=== PATIENT | female | born 2000 | race Caucasian/White ===

== ENCOUNTER 2018-08-23 10:08 | Emergency (ER) | payer BC ==
--- NOTE | 2018-08-23 11:03 | ED ---
General Adult HPI - General Chief complaint: Anxiety Stated complaint: Mental Health Time Seen by Provider: 08/23/18 10:31 Source: patient, RN notes reviewed Mode of arrival: ambulatory Limitations: no limitations - History of Present Illness Initial comments: Patient's a 17-year-old female presenting to the emergency room today with her mother, the chief complaint of needing a evaluation for anxiety. Patient states that she's been dealing with increased anxiety. She states she's had this now for several years but has gotten worse this past year. She states she' s been working the next and feels that this does not help. States she's been unable to go to work because when she leaves the house and anxiety increases. She states she knows that she's just thinking about it too much. She states she is not on any medications. She was prescribed some Zoloft that she tried one pill but did not like how it made her feel. She did talk to a counselor advised her to come here to the emergency room to be evaluated. Patient denies any suicidal, homicidal thoughts or plans. Denies any other physical complaints. Patient denies any recent fever, chills, shortness of breath, chest pain, back pain, abdominal pain, nausea or vomiting, headaches or visual changes , or any other complaints. - Related Data Previous Rx's Medication Instructions Recorded ALPRAZolam [Xanax] 0.25 mg PO Q8HR PRN 3 Days #9 tab 08/23/18 Allergies Allergy/AdvReac Type Severity Reaction Status Date / Time No Known Allergies Allergy Verified 08/23/18 10:22 Review of Systems ROS Statement: Those systems with pertinent positive or pertinent negative responses have been documented in the HPI. ROS Other: All systems not noted in ROS Statement are negative. Past Medical History Additional Past Medical History / Comment(s): DANNY History of Any Multi-Drug Resistant Organisms: None Reported Past Surgical History: No Surgical Hx Reported Past Psychological History: ADD/ADHD, Anxiety Smoking Status: Never smoker Past Alcohol Use History: None Reported Past Drug Use History: None Reported General Exam - General Exam Comments Initial Comments: General: The patient is awake and alert, in no distress, and does not appear acutely ill. Neck: The neck is supple Cardiovascular: There is a regular rate and rhythm. No murmur, rub or gallop is appreciated. Respiratory: Lungs are clear to auscultation, respirations are non-labored, breath sounds are equal. No wheezes, stridor, rales, or rhonchi. Musculoskeletal: Normal ROM, no tenderness. Neurological: A&O x 3. CN II-XII intact, There are no obvious motor or sensory deficits. Coordination appears grossly intact. Speech is normal. Skin: Skin is warm and dry and no rashes or lesions are noted. Psychiatric: Cooperative, appropriate mood & affect, normal judgment. Limitations: no limitations Course Vital Signs 08/23/18 10:22 Temperature 98.5 F Pulse Rate 103 H Respiratory 18 Rate Blood Pressure 137/91 O2 Sat by Pulse 100 Oximetry Medical Decision Making - Medical Decision Making Patient examined here in the emergency room by mental health. They recommend the patient follow up outpatient. They do recommend trying patient on a short prescription of Xanax until she is able follow-up next week. Patient advised to return to emergency room if any symptoms increase worsen. - Lab Data Lab Results 08/23/18 08/23/18 Range/Units 11:07 11:07 Urine HCG, Qual Not Detected (Not Detectd) Urine Opiates Screen Not Detected (NotDetected) Ur Oxycodone Screen Not Detected (NotDetected) Urine Methadone Screen Not Detected (NotDetected) Ur Propoxyphene Screen Not Detected (NotDetected) Ur Barbiturates Screen Not Detected (NotDetected) U Tricyclic Antidepress Not Detected (NotDetected) Ur Phencyclidine Scrn Not Detected (NotDetected) Ur Amphetamines Screen Not Detected (NotDetected) U Methamphetamines Scrn Not Detected (NotDetected) U Benzodiazepines Scrn Not Detected (NotDetected) Urine Cocaine Screen Not Detected (NotDetected) U Marijuana (THC) Screen Detected H (NotDetected) Disposition Clinical Impression: Anxiety Disposition: HOME SELF-CARE Condition: Good Instructions: Generalized Anxiety Disorder (ED) Additional Instructions: Please follow-up with counselor as discussed. Please use medication if needed for your symptoms of anxiety. Please return to emergency room for any other concerns. Prescriptions: ALPRAZolam [Xanax] 0.25 mg PO Q8HR PRN 3 Days #9 tab PRN Reason: Anxiety Is patient prescribed a controlled substance at d/c from ED?: No Referrals: María Case MD [Primary Care Provider] - 1-2 days Time of Disposition: 13:24
[2018-08-23 12:34] LABS: Amphetamine Screen,Urine Not Detected (NotDetected); Barbiturate Screen,Urine Not Detected (NotDetected); Benzodiazepines Screen,Urine Not Detected (NotDetected); Cocaine Screen,Urine Not Detected (NotDetected); Methadone Screen, Urine Not Detected (NotDetected); Opiate Screen,Urine Not Detected (NotDetected); Oxycodone Screen, Urine Not Detected (NotDetected); Phencyclidine Screen,Urine Not Detected (NotDetected); Tricyclic Antidepressant,Urine Not Detected (NotDetected); Urn Cannabinoid Scrn Detected (NotDetected)
[2018-08-23 13:38] VITALS: BP 138/70; PULSE 78; RESP 16; TEMP 97.8
== END 2018-08-23 13:30 | disposition home or self-care (01) ==
LOC: EC 10:08
DX: F41.9 Anxiety disorder, unspecified (principal)
CPT/HCPCS: 80306; 81025; 99284